=== PATIENT | female | born 1965 | race Caucasian/White ===

== ENCOUNTER → 2020-07-13 | Outpatient (CLI) | payer BC ==
[2016-08-23 11:33] VITALS: BP 104/63
[~2020-07-13] MED LIST: KETOROLAC10 MG PO; PREMROSE OIL; SENOKOT NATURA8.6 MG PO
== END ==
LOC: LAB 08:49
DX: Z20.828 Contact with and (suspected) exposure to other viral communicable diseases (principal)

== ENCOUNTER → 2020-07-16 | Day surgery (SDC) | payer BC ==
[2016-08-23 11:33] VITALS: BP 104/63
== END ==
LOC: MSO 07:12
DX: Z12.11 Encounter for screening for malignant neoplasm of colon (principal); Z86.010 Personal history of colon polyps; Z88.0 Allergy status to penicillin; Z88.1 Allergy status to other antibiotic agents
CPT/HCPCS: 00812; J2704; J7120